=== PATIENT | male | born 1985 | race Caucasian/White ===

== ENCOUNTER 2017-04-27 12:32 | Emergency (ER) | payer BC ==
[~2017-04-27] VITALS: Wt 79.9 kg
--- NOTE | 2017-04-27 13:14 | ERD ---
ER Documentation Chief Complaint Chief Complaint headache/bodyache/cough/sneezing x1week HPI 28-year-old male otherwise healthy comes in with headache, cough, sore throat, body aches for 1 week. The patient has been taking DayQuil and NyQuil for symptoms. The headache is achy, frontal, throbbing and worse with cough. He has had a clear rhinorrhea with dry cough. No chest pain, shortness breath or hemoptysis. He denies recent travel. He is a non-smoker he denies any history of respiratory issues. ROS All systems reviewed and are negative except as per history of present illness. Medications Home Meds Active Scripts Benzonatate* (Tessalon Perle*) 100 Mg Capsule, 100 MG PO Q8H Y for COUGH, #30 CAP Prov:KARLOS NAYLOR PA-C 04/27/17 Cetirizine Hcl* (Zyrtec*) 10 Mg Capsule, 10 MG PO DAILY, #30 TAB Prov:KARLOS NAYLOR PA-C 04/27/17 Mometasone Furoate* (Nasonex*) 50 Mcg/[place] - 17 Gm [place].pump, 1 SPRAY NASAL BID, #1 BOTTLE IN EACH NOSTRIL Prov:KARLOS NAYLOR PA-C 04/27/17 Ibuprofen* (Motrin*) 600 Mg Tab, 600 MG PO Q6, #30 TAB Prov:KARLOS NAYLOR PA-C 04/27/17 Allergies Allergies: Coded Allergies: No Known Allergy (Unverified , 04/27/17) PMhx/Soc Medical and Surgical Hx: pt denies Medical Hx Hx Alcohol Use: No Hx Substance Use: No Hx Tobacco Use: No Physical Exam Vitals Vital Signs Date Time Temp Pulse Resp B/P Pulse Ox O2 Delivery O2 Flow Rate FiO2 04/27/17 12:39 98.5 68 18 125/77 98 Physical Exam General: Well-developed, well-nourished. The patient appears in no acute distress. HEENT: Head is normocephalic, atraumatic. No scleral icterus. Ears are normal , oropharynx is clear. Neck: Supple. Nontender. Lungs: Clear to auscultation. Normal air movement. Heart: Regular rate and rhythm. S1 and S2 are normal. No murmurs, gallops, or rubs. Abdomen: Nondistended. Extremities: No clubbing or cyanosis. Moving extremities x 4. No weakness. Neurologic: Alert and oriented 3. No focal deficits. Normal speech and gait. Skin: Normal turgor. No rash or lesions. Results 24 hrs DIAGNOSTIC IMAGING REPORT Patient: JOJO BAPTISTE : 1985 Age: 31 Sex: M MR #: [id number] DOS: 04/27/17 1303 Ordering MD: KARLOS NAYLOR PA-C Location: [facility] Room/Bed: PROCEDURE: XR Chest. CLINICAL INDICATION: chest pain, cough TECHNIQUE: Single frontal view of the chest was obtained COMPARISON: None FINDINGS: The heart and mediastinum are within normal limits. The lungs are clear. There is no pleural effusion or pneumothorax. RPTAT: AA IMPRESSION: No acute disease. .Manpreet Madden MD, MD Date Time Electronically viewed and signed by .Manpreet Madden MD, MD on 04/27/2017 13: 40 .S/ Procedures/MDM The patient is a 31-year-old male who comes in with an acute upper respiratory infection, presumed viral. Normal. The patient has a differential diagnosis of a viral upper respiratory infection, bacterial upper respiratory infection, bronchitis, pneumonia, pharyngitis, laryngitis, epiglottitis, croup, pneumonia. Patient has a normal pulmonary examination, clear breath sounds, normal pulse oximetry, with no corrective measures needed at this time. Fluids, rest, antipyretics were encouraged. Departure Diagnosis: Primary Impression: Upper respiratory infection Condition: Good KARLOS NAYLOR PA-C Apr 27, 2017 13:14
--- NOTE | 2017-04-27 13:40 | RADRPT ---
PROCEDURE: XR Chest. CLINICAL INDICATION: chest pain, cough TECHNIQUE: Single frontal view of the chest was obtained COMPARISON: None FINDINGS: The heart and mediastinum are within normal limits. The lungs are clear. There is no pleural effusion or pneumothorax. RPTAT: AA IMPRESSION: No acute disease. .Manpreet Madden MD, MD Date Time Electronically viewed and signed by .Manpreet Madden MD, on 04/27/2017 13:40 .S/
[2017-04-27] MEDS ORDERED: BENZ100C70 PO (13:51)
[2017-04-27] MEDS ORDERED: CETI10CA PO (13:51)
[2017-04-27] MEDS ORDERED: IBUP-1542 PO (13:51)
[2017-04-27] MEDS ORDERED: NASO17 NASAL (13:51)
== END 2017-04-27 14:03 | disposition home or self-care (01) ==
LOC: FTE 12:32
DX: J06.9 Acute upper respiratory infection, unspecified (principal)
CPT/HCPCS: 71010; Z7502